=== PATIENT | male | born 1965 | race American Indian/Alaskan Native ===

== ENCOUNTER 2022-04-06 06:07 | Day surgery (SDC) | payer OTHER ==
[~2022-04-06] VITALS: Ht 170.2 cm; Wt 86.2 kg
[~2022-04-06 06:07] MED LIST: COZAAR50 MG PO; ELIQUIS5 MG PO; IBUPROFEN800 MG PO; K-TAB ER20 MEQ PO; LATANOPROST2.5 ML OPTH; MAGNESIUM OXID400 M1 PO; MULTI VITAMIN1 EACH PO; OMEPRAZOLE20 MG PO; TOPROL XL25 MG PO; VITAMIN D32000 UNI1 PO
--- NOTE | 2022-04-06 08:13 | NUR ---
04/06/22 0813 Alicia Butler 0752 PT ARRIVED IN PACU SLEEPY WITH NO C/O'S. ABD FIRM AND LAYING ON L SIDE. ENCOURAGED TO PASS FLATUS. 0810 RESTING. REU.
--- NOTE | 2022-04-07 06:17 | OR ---
[facility] [address], [place] [address] Signed DATE OF OPERATION: 04/06/2022 SURGEON: Elena Clarke MD PREOPERATIVE DIAGNOSES: 1. Father with colon cancer in his 70s. 2. Unremarkable colonoscopy 2015. POSTOPERATIVE DIAGNOSES: 1. 4 mm polyp at 75 cm. 2. Minimal internal hemorrhoids. PROCEDURE: Colonoscopy with hot biopsy. ESTIMATED BLOOD LOSS: None. INDICATIONS: Sarath is a 56-year-old gentleman, asked to see me for a followup colonoscopy. His father was diagnosed with colon cancer in his early 70s. Sarath underwent a negative colonoscopy in 2016 with myself. He has done well with Versed and fentanyl in the past. 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 Consequently, we always gave him antibiotics. He had this corrected at age 4 and he seems to do quite well with his activities. He has no lower GI complaints. I had given him a pamphlet in the office on colonoscopy. He recalls the nature of the test. There is risk including, but not limited to gas bloating, crampy abdominal pain, bleeding, perforation requiring surgery, and missed diagnosis. He recalls the need for IV conscious sedation. He had expressed understanding and wished to proceed. PROCEDURE NOTE: Sarath was taken into our endoscopy suite and placed in the left lateral decubitus position. He was given IV sedation with 4 mg of Versed and 150 mcg of fentanyl. A digital rectal exam was performed. Not much in the way of any external hemorrhoids. A good sphincter tone. His prostate is becoming indurated and enlarged. The adult colonoscope had been introduced and advanced under direct visualization of the camera up into the cecum itself. It took just a little extra sedation in order to advance the scope. His prep was good. We could easily see the appendiceal orifice and ileocecal valve. The scope was then slowly withdrawn. We took pictures throughout for photodocumentation. He had a single 4 mm polyp at 75 cm. It was easily removed with Electronically Signed By: ELENA CLARKE MD 04/07/22 0617 PATIENT NAME: SARATH CATALAN OPERATIVE REPORT DATE OF : 65 REPORT #: [id number] PHYSICIAN: ELENA CLARKE MD PCP: ARNOLD FARGOSO REPORT IS CONFIDENTIAL AND NOT TO BE RELEASED WITHOUT AUTHORIZATION [facility] [address] [place] [id number] Signed the help of hot biopsy forceps. There was no diverticulosis. The rectum was unremarkable. Upon retroflexion of scope, we could see very minimal internal hemorrhoid tissue. After this, the gas was suctioned out and the colonoscope removed. Sarath tolerated the procedure quite well. RECOMMENDATIONS: I will see Sarath back in my office in 7 to 14 days to review his results. I suspect he will stay on the 5-year rotation. Elena Clarke MD [facility] /[id number] cc: [facility] Elena Clarke MD Copies: ELENA CLARKE MD ~ Electronically Signed By: ELENA CLARKE MD 04/07/22 0617 PATIENT NAME: SARATH CATALAN OPERATIVE REPORT DATE OF : 65 REPORT #: [id number] PHYSICIAN: ELENA CLARKE MD PCP: ARNOLD FRAGOSO REPORT IS CONFIDENTIAL AND NOT TO BE RELEASED WITHOUT AUTHORIZATION
--- NOTE | 2022-04-07 16:41 | PATH ---
[facility] [address], [place] [address] Signed SPECIMEN(S): A COLON POLYP SPECIMEN SOURCE: A. COLON POLYP CLINICAL HISTORY: Family history of colon cancer. FINAL PATHOLOGIC DIAGNOSIS: Colon, polyp at 75 cm, polypectomy: - Tubular adenoma. - Negative for high-grade dysplasia or malignancy. NAL:cml:C2NR MICROSCOPIC EXAMINATION: Histologic sections of all submitted blocks are examined by light microscopy. These findings, together with the gross examination, support the pathologic diagnosis. GROSS DESCRIPTION: The specimen, labeled "SL, 1," and designated on the requisition "colon polypectomy at 75 cm," is received in formalin and consists of one fragment pink-carr tissue (0.3 cm in greatest dimension). The specimen is submitted entirely in cassette A1. AC (under the direct supervision of a pathologist) The Gross Description was prepared using a voice recognition system. The report was reviewed for accuracy; however, sound-alike word errors, addition and/or deletions may occur. If there is any question about this report, please contact Client Services. PERFORMING LABORATORY: The technical component was performed by [facility], [address] [place] [id number] (CLIA# [id number]). [facility] [address] [address] (CLIA# [id number]). Diagnostician: Vera Noble MD Pathologist Electronically Signed 04/07/2022 PATIENT NAME: SHAN CATALAN PATHOLOGY DATE OF : 65 REPORT #: [id number] PHYSICIAN: JOAO LEW PCP: ARNOLD FRAGOSO REPORT IS CONFIDENTIAL AND NOT TO BE RELEASED WITHOUT AUTHORIZATION [address] [address] Signed Copies: ~ PATIENT NAME: SHAN CATALAN PATHOLOGY DATE OF : 65 REPORT #: [id number] PHYSICIAN: JOAO LEW PCP: ARNOLD FRAGOSO REPORT IS CONFIDENTIAL AND NOT TO BE RELEASED WITHOUT AUTHORIZATION
== END 2022-04-06 08:35 | disposition home or self-care (01) ==
LOC: OPS 06:07 → DS 07:30 → OPS 08:35
PROVIDERS: ATTEND Colon & Rectal Surgery
PROC: 0DBE8ZX Excision of Large Intestine, Via Natural or Artificial Opening Endoscopic, Diagnostic (ICD-10-PCS; principal; 2022-04-06 07:30)
DX: Z12.11 Encounter for screening for malignant neoplasm of colon (principal); D12.6 Benign neoplasm of colon, unspecified; K64.8 Other hemorrhoids; I25.2 Old myocardial infarction; Q21.3 Tetralogy of Fallot; Z95.0 Presence of cardiac pacemaker; Z80.0 Family history of malignant neoplasm of digestive organs; Z88.0 Allergy status to penicillin
CPT/HCPCS: 99153; G0500; J0690; J2250; J3010; J7121